=== PATIENT | male | born 1970 | race Caucasian/White ===

== ENCOUNTER 2022-10-21 18:18 | Emergency (ER) | payer OTHER ==
[2022-10-21 18:28] VITALS: BP 150/90; PULSE 112; RESP 18; TEMP 97.6; BMI 40.4
[2022-10-21] MEDS ORDERED: LIDOCAINE HCL 1%, 10 MG/ML (50 mL VIAL) SQ ONE (20:44)
== END 2022-10-21 21:59 | disposition home or self-care (01) ==
LOC: JERFT 18:18
DX: S61.210A Laceration without foreign body of right index finger without damage to nail, initial encounter (principal); X58.XXXA Exposure to other specified factors, initial encounter; Y93.9 Activity, unspecified; Y92.9 Unspecified place or not applicable
CPT/HCPCS: 99282-25

== ENCOUNTER 2025-01-08 14:51 | Emergency (ER) | payer OTHER ==
[2025-01-08 15:03] VITALS: BP 163/93; PULSE 76
[2025-01-08 15:07] VITALS: RESP 19; TEMP 97.6; BMI 38.5
[2025-01-08] MEDS: IBUPROFEN 400 MG TABLET (FP) PO ONE (15:58)
== END 2025-01-08 16:10 | disposition home or self-care (01) ==
LOC: FER 14:51
DX: M25.512 Pain in left shoulder (principal); X50.1XXA Overexertion from prolonged static or awkward postures, initial encounter; Y92.810 Car as the place of occurrence of the external cause
CPT/HCPCS: 73000-TC-LT-FY; 73030-TC-LT-FY; 99283-25